=== PATIENT | male | born 1975 | race Caucasian/White ===

== ENCOUNTER 2020-11-02 18:21 | Emergency (ER) | payer BC, SELFPAY ==
--- NOTE | ~2020-11-02 | XR_ITS ---
XR elbow LT min 3V DATE: 11/02/2020 18:53 INDICATION: Fall from truck. Left elbow injury, pain TECHNIQUE: 4 views COMPARISON: None FINDINGS: Mild dorsal olecranon process spurring. No fracture or dislocation or joint effusion. No periosteal reaction or bone destruction. IMPRESSION: No fracture or dislocation or joint effusion Reviewed, dictated and finalized at location A.
--- NOTE | ~2020-11-02 | XR_ITS ---
XR wrist RT min 3V DATE: 11/02/2020 18:54 INDICATION: Fall from truck. Right wrist pain. TECHNIQUE: 3 views COMPARISON: None FINDINGS: No fracture or dislocation, periosteal reaction or bone destruction, joint space narrowing, erosive change or chondral calcinosis. IMPRESSION: Negative Reviewed, dictated and finalized at location A. IMPRESSION: Negative
--- NOTE | ~2020-11-02 | XR_ITS ---
XR wrist LT min 3V DATE: 11/02/2020 18:54 INDICATION: Fall from truck. Left wrist injury, pain TECHNIQUE: 3 views COMPARISON: None FINDINGS: There is a virtually nondisplaced intra-articular fracture of the distal radius, particular ly at the radial styloid. No other fracture or dislocation is evident. IMPRESSION: Virtually nondisplaced intra-articular fracture of the distal radius Reviewed, dictated and finalized at location A. IMPRESSION: Virtually nondisplaced intra-articular fracture of the distal radiu s
[2020-11-02 18:29] VITALS: BP 172/99; PULSE 105; RESP 18; TEMP 36.9; O2SAT 99
--- NOTE | 2020-11-02 19:22 | ED.FALL ---
HPI - Fall General Chief Complaint: Fall Stated Complaint: fall out of truck Time Seen by Provider: 11/02/20 18:36 Source: patient Mode of arrival: ambulatory Limitations: no limitations History of Present Illness HPI Narrative: Patient is a 45 year old male who presents with bilateral wrist pain. Patient reports losing balance and falling from the bed of his truck landing on buttocks and bilateral wrists. Patient reports right wrist tenderness and left wrist pain, no visible deformity noted. Patient denies hitting head or LOC. Patient denies significant medical history. MD complaint: fall Related Data Home Medications Medication Instructions Recorded Confirmed hydrochlorothiazide 11/02/20 Allergies Allergy/AdvReac Type Severity Reaction Status Date / Time No Known Allergies Allergy Mild Verified 11/02/20 18:35 Review of Systems Review of Systems: Narrative: CONSTITUTIONAL: Denies fever, chills, or sweats. EYES: Denies visual changes, redness, or discharge. ENT: Denies rhinorrhea, congestion, sore throat, or otalgia. CARDIOVASCULAR: Denies chest pain, palpitations, or edema. RESPIRATORY: Denies cough or dyspnea. GASTROINTESTINAL: Denies abdominal pain, nausea, vomiting, or diarrhea. GENITOURINARY: Denies dysuria or hematuria. SKIN: Denies rash or itching. MUSCULOSKELETAL: Bilateral wrist pain NEUROLOGIC: Denies headache, numbness, dizziness, or weakness. PSYCHIATRIC: Denies anxiety or depression. [facility] Past Medical History Medical History Chronic sinusitis HTN (hypertension) Seasonal allergies Surgical History Surgical History History of appendectomy Family History Family History Other Arthritis Diabetes mellitus Hypertension Social History Social History Smoking status: Former smoker Alcohol intake: current Alcohol use details: Occasional Substance use: never Living arrangements: with family Gender identity (if verbalized by the patient): Male Comments At the time of signature, I have reviewed and agree with nursing past medical, surgical, social, and family history unless otherwise noted. Please see nursing chart for further information. There is no relevant family history pertinent to the presenting complaint. Exam Narrative: Exam Narrative: GENERAL: Well-appearing, well-nourished, and in no acute distress. HEAD: Normocephalic, atraumatic. EYES: EOMI. No redness or drainage. Conjunctiva are normal. ENT: Mucous membranes pink and moist. CHEST: No respiratory distress. Clear to auscultation. HEART: Regular rate and rhythm. EXTREMITIES: Right wrist: Full range of motion tenderness with palpation. Left wrist: Decreased range of motion, edema, tenderness with palpation, no visible deformity SKIN: Warm, dry, no rash. NEURO: No focal deficits. Alert and oriented x3. Gait steady. PSYCH: Normal affect. No signs of depression or anxiety. Course Vital Signs Vital signs: Vital Signs Temperature 36.9 C 11/02/20 18:29 Pulse Rate 105 H 11/02/20 18:29 Respiratory Rate 18 11/02/20 18:29 Blood Pressure 172/99 H 11/02/20 18:29 Pulse Oximetry 99 11/02/20 18:29 Temperature 36.9 C 11/02/20 18:29 Pulse Rate 105 H 11/02/20 18:29 Respiratory Rate 18 11/02/20 18:29 Blood Pressure 172/99 H 11/02/20 18:29 Pulse Oximetry 99 11/02/20 18:29 Reviewed. Patient has been instructed to follow-up with his PCP regarding his blood pressure. Procedures Orthopedic Splinting/Casting Injury #1: Splinting/Casting Date: 11/02/20 Splinting/Casting Time: 19:31 Side: left Upper Extremity Injury Location: wrist Splint: customized in ED OCL: long arm Pre-Procedure Neuro Vascular Exam: normal Post-Proc
[2020-11-02] MEDS: HYDROcodone/acetaminophen (*CRX) 5-325 MG TABLET 1 TAB PO (19:29)
[2020-11-02 20:20] VITALS: BP 154/79; PULSE 89; RESP 18; TEMP 36.6; O2SAT 99
== END 2020-11-02 20:20 | disposition home or self-care (01) ==
PROVIDERS: Emergency Provider Nurse Practitioner; PCP Internal Medicine
DX: S52.572A Other intraarticular fracture of lower end of left radius, initial encounter for closed fracture (principal); I10 Essential (primary) hypertension; J32.9 Chronic sinusitis, unspecified; Z87.891 Personal history of nicotine dependence; W17.89XA Other fall from one level to another, initial encounter
CPT/HCPCS: 29105; 73080; 73110; 99284; A4565; A9270

== ENCOUNTER 2022-12-17 00:08 | Day surgery (SDC) | payer BC, SELFPAY ==
[2022-12-06 14:14] VITALS: BMI 27.8
[2022-12-17 07:15] VITALS: BP 133/91; PULSE 64; RESP 20; TEMP 35.9; O2SAT 100
--- NOTE | 2022-12-17 07:19 | WPDANESEPPF ---
Anes - Initial Pre Proc Eval Procedure: Operation Date: 12/17/22 08:00 Proposed Procedures p Screening Colonoscopy - Eddy Umaña MD Date/Time: 12/17/22 07:19 Surgeon: Eddy Umaña MD Pre Op Diagnosis: neoplasm screening Patient Data Age: 47 Gender: M Height: 1.83 m Weight: 91.6 kg Allergies Allergy/AdvReac Type Severity Reaction Status Date / Time No Known Allergies Allergy Mild Verified 12/17/22 07:11 Home Medications Medication Instructions Recorded Confirmed Type hydrochlorothiazide 12.5 mg capsule 25 mg PO DAILY 11/02/20 12/06/22 History loratadine 10 mg tablet (Claritin) 10 mg PO DAILY 11/04/20 12/06/22 History sodium,potassium,mag sulfates 17.5 See Rx Instructions PO .COMPLEX 11/09/22 Rx gram-3.13 gram-1.6 gram oral soln #354 mL (Suprep Bowel Prep Kit) Patient hx anesthesia problems: none Family hx anesthesia problems: none Results Review: All pre-operative results and documents have been reviewed as part of the pre-operative evaluation. [facility] Past Medical History Medical History (Updated 12/29/20 @ 17:04 by Michele Can MD) Chronic sinusitis HTN (hypertension) Radial styloid fracture Seasonal allergies Wears glasses Surgical History Surgical History History of appendectomy Family History Family History Other Arthritis Diabetes mellitus Hypertension Social History Social History Smoking status: Former smoker Alcohol intake: current Drinks per week: 2 Alcohol use details: Occasional Substance use: never Substance use type: does not use Living arrangements: with family Occupation/Education: occupation Gender identity (if verbalized by the patient): Male Spiritual care concerns: No Anes - Eval Final PreProcedure Day of Procedure 12/17/22 07:19 Patient weight: overweight Heart: regular rate and rhythm Lungs: clear to auscultation and normal air movement Airway: Mallampati scale class II Neurological: alert and oriented Last oral intake: >/= 8 hours ASA classification: II Emergent: no Anesthetic plan: proceed Anesthesia type and monitoring: general GIVS Results Review: All pre-operative results and documents have been reviewed as part of the pre-operative evaluation. Informed Consent: The patient's anesthetic plan and its attendant risks and benefits were discussed with the patient/family/POA. Questions were solicited and answers provided to the satisfaction of the patient/family/POA.
--- NOTE | 2022-12-17 07:45 | P.HP_ITS ---
History of Present Illness History of Present Illness Consent: Risks, benefits, and alternatives have been discussed and questions answered. Patient agrees to proceed with procedure. Chief complaint: neoplasm screening Narrative: Deny Francis Jr. is a 47 year old male Presents for screening colonoscopy. Patient's current weight appetite and bowel movements are normal. Patient denies abdominal pain. He has had no bleeding. Family history noncontributory. Patient past medical history is significant for ruptured appendix he underwent surgery and had portion of his right colon removed at that time. He has healed well and everything currently functions well. He has normal bowel movements with no pain or bleeding. Patient presents today for neoplasia screening colonoscopy. Review of Systems Review of Systems: Review of systems noncontributory. [facility] Past Medical History Medical History (Updated 12/17/22 @ 07:47 by Eddy Umaña MD) Chronic sinusitis HTN (hypertension) Radial styloid fracture Seasonal allergies Wears glasses Surgical History Surgical History History of appendectomy Family History Family History Other Arthritis Diabetes mellitus Hypertension Social History Social History Smoking status: Former smoker Alcohol intake: current Drinks per week: 2 Alcohol use details: Occasional Substance use: never Substance use type: does not use Living arrangements: with family Occupation/Education: occupation Gender identity (if verbalized by the patient): Male Spiritual care concerns: No Meds Home Medications and Allergies Home Medications Medication Instructions Recorded Confirmed Type hydrochlorothiazide 12.5 mg capsule 25 mg PO DAILY 11/02/20 12/06/22 History loratadine 10 mg tablet (Claritin) 10 mg PO DAILY 11/04/20 12/06/22 History sodium,potassium,mag sulfates 17.5 See Rx Instructions PO .COMPLEX 11/09/22 Rx gram-3.13 gram-1.6 gram oral soln #354 mL (Suprep Bowel Prep Kit) Allergies Allergy/AdvReac Type Severity Reaction Status Date / Time No Known Allergies Allergy Mild Verified 12/17/22 07:11 Exam Narrative: Physical exam reveals patient to be alert. Vital signs stable. HEENT exam is unremarkable. Patient is anicteric. Lungs are clear to auscultation and percussion. Heart is without murmur or extra sounds. Abdomen bowel sounds are present soft nontender with no organomegaly. Digital external rectal exam is normal. Assessment and Plan Assessment and plan (1) Encounter for screening colonoscopy: Code(s): Z12.11 - Encounter for screening for malignant neoplasm of colon Status: Acute Assessment and Plan: Patient presents today for screening colonoscopy. He appears to be at average risk for colon polyps. Further recommendations may be given after endoscopy.
[2022-12-17] MEDS: LACTATED RINGERS 1,000 ML 150 ML IV CONT (08:08)
[2022-12-17 08:09] VITALS: BP 109/75; PULSE 70; RESP 19; O2SAT 100
[2022-12-17 08:19] VITALS: BP 112/81; PULSE 88; RESP 17; O2SAT 100
[2022-12-17 08:26] VITALS: BP 110/76; PULSE 80; RESP 22; O2SAT 100
== END 2022-12-17 08:35 | disposition home or self-care (01) ==
PROVIDERS: PCP Internal Medicine; Visit Provider Internal Medicine Gastroenterology
PROC: 0DJD8ZZ Inspection of Lower Intestinal Tract, Via Natural or Artificial Opening Endoscopic (ICD-10-PCS; CPT 45378; principal; 2022-12-17 08:00)
DX: Z12.11 Encounter for screening for malignant neoplasm of colon (principal); K64.8 Other hemorrhoids; K57.30 Diverticulosis of large intestine without perforation or abscess without bleeding; Z98.0 Intestinal bypass and anastomosis status; Z90.49 Acquired absence of other specified parts of digestive tract; Z87.19 Personal history of other diseases of the digestive system; I10 Essential (primary) hypertension; Z87.891 Personal history of nicotine dependence
CPT/HCPCS: 45378; J2704; J7120